=== PATIENT | female | born 1965 | race Two or more races ===

== ENCOUNTER 2018-11-26 08:50 | Outpatient (CLI) | payer OTHER | END 2018-11-26 23:59 | disposition home or self-care (01) | LOC: WOU 08:50 | PROVIDERS: ATTEND Podiatrist Foot & Ankle Surgery | DX: E11.621 Type 2 diabetes mellitus with foot ulcer (principal); L97.512 Non-pressure chronic ulcer of other part of right foot with fat layer exposed; E11.42 Type 2 diabetes mellitus with diabetic polyneuropathy; M21.41 Flat foot [pes planus] (acquired), right foot; Z89.421 Acquired absence of other right toe(s); M20.41 Other hammer toe(s) (acquired), right foot; Z79.4 Long term (current) use of insulin | CPT/HCPCS: 99205; A6402; G0463 ==

== ENCOUNTER 2018-12-03 08:00 | Outpatient (CLI) | payer OTHER | END 2018-12-03 23:59 | disposition home or self-care (01) | LOC: WOU 08:00 | PROVIDERS: ATTEND Podiatrist Foot & Ankle Surgery | DX: E11.621 Type 2 diabetes mellitus with foot ulcer (principal); L97.512 Non-pressure chronic ulcer of other part of right foot with fat layer exposed; Z79.4 Long term (current) use of insulin; M21.40 Flat foot [pes planus] (acquired), unspecified foot; E11.42 Type 2 diabetes mellitus with diabetic polyneuropathy; M20.41 Other hammer toe(s) (acquired), right foot; R60.0 Localized edema | CPT/HCPCS: G0463 ==

== ENCOUNTER 2018-12-10 08:30 | Outpatient (CLI) | payer OTHER | END 2018-12-10 23:59 | disposition home or self-care (01) | LOC: WOU 08:30 | PROVIDERS: ATTEND Podiatrist Foot & Ankle Surgery | DX: E11.621 Type 2 diabetes mellitus with foot ulcer (principal); L97.512 Non-pressure chronic ulcer of other part of right foot with fat layer exposed; E11.42 Type 2 diabetes mellitus with diabetic polyneuropathy; M21.40 Flat foot [pes planus] (acquired), unspecified foot; Z79.4 Long term (current) use of insulin | CPT/HCPCS: 11042 ==

== ENCOUNTER → 2018-12-17 | Outpatient (CLI) | payer OTHER | END | disposition home or self-care (01) | LOC: WOU 09:10 | PROVIDERS: ATTEND Podiatrist Foot & Ankle Surgery | DX: E11.621 Type 2 diabetes mellitus with foot ulcer (principal); L97.512 Non-pressure chronic ulcer of other part of right foot with fat layer exposed; E11.42 Type 2 diabetes mellitus with diabetic polyneuropathy; M21.41 Flat foot [pes planus] (acquired), right foot; R60.0 Localized edema; Z97.4 Presence of external hearing-aid | CPT/HCPCS: 11042 ==

== ENCOUNTER 2018-12-24 09:20 | Outpatient (CLI) | payer OTHER | END 2018-12-24 23:59 | disposition home or self-care (01) | LOC: WOU 09:20 | PROVIDERS: ATTEND Podiatrist Foot & Ankle Surgery | DX: E11.621 Type 2 diabetes mellitus with foot ulcer (principal); L97.512 Non-pressure chronic ulcer of other part of right foot with fat layer exposed; E11.42 Type 2 diabetes mellitus with diabetic polyneuropathy; M21.41 Flat foot [pes planus] (acquired), right foot; M76.821 Posterior tibial tendinitis, right leg; M19.171 Post-traumatic osteoarthritis, right ankle and foot; Z79.4 Long term (current) use of insulin | CPT/HCPCS: 11042 ==

== ENCOUNTER 2018-12-31 09:20 | Outpatient (CLI) | payer OTHER | END 2018-12-31 23:59 | disposition home or self-care (01) | LOC: WOU 09:20 | PROVIDERS: ATTEND Podiatrist Foot & Ankle Surgery | DX: E11.621 Type 2 diabetes mellitus with foot ulcer (principal); L97.512 Non-pressure chronic ulcer of other part of right foot with fat layer exposed; R60.0 Localized edema; E11.42 Type 2 diabetes mellitus with diabetic polyneuropathy; M21.41 Flat foot [pes planus] (acquired), right foot; Z79.4 Long term (current) use of insulin | CPT/HCPCS: 11042 ==

== ENCOUNTER 2019-01-11 09:05 | Outpatient (CLI) | payer OTHER | END 2019-01-11 23:59 | disposition home or self-care (01) | LOC: WOU 09:05 | PROVIDERS: ATTEND Podiatrist Foot & Ankle Surgery | DX: E11.621 Type 2 diabetes mellitus with foot ulcer (principal); L97.512 Non-pressure chronic ulcer of other part of right foot with fat layer exposed; E11.42 Type 2 diabetes mellitus with diabetic polyneuropathy; Z79.4 Long term (current) use of insulin; Z79.899 Other long term (current) drug therapy; M21.41 Flat foot [pes planus] (acquired), right foot; R60.0 Localized edema | CPT/HCPCS: 11042 ==

== ENCOUNTER 2019-01-18 09:09 | Outpatient (CLI) | payer OTHER | END 2019-01-18 23:59 | disposition home or self-care (01) | LOC: WOU 09:09 | PROVIDERS: ATTEND Podiatrist Foot & Ankle Surgery | DX: E11.621 Type 2 diabetes mellitus with foot ulcer (principal); L97.512 Non-pressure chronic ulcer of other part of right foot with fat layer exposed; E11.42 Type 2 diabetes mellitus with diabetic polyneuropathy; E11.610 Type 2 diabetes mellitus with diabetic neuropathic arthropathy; Z79.4 Long term (current) use of insulin; R60.0 Localized edema; M21.41 Flat foot [pes planus] (acquired), right foot; M76.821 Posterior tibial tendinitis, right leg; M19.171 Post-traumatic osteoarthritis, right ankle and foot; Z79.899 Other long term (current) drug therapy | CPT/HCPCS: 11042 ==

== ENCOUNTER 2019-01-25 09:00 | Outpatient (CLI) | payer OTHER | END 2019-01-25 23:59 | disposition home or self-care (01) | LOC: WOU 09:00 | PROVIDERS: ATTEND Podiatrist Foot & Ankle Surgery | DX: E11.621 Type 2 diabetes mellitus with foot ulcer (principal); L97.512 Non-pressure chronic ulcer of other part of right foot with fat layer exposed; E11.42 Type 2 diabetes mellitus with diabetic polyneuropathy; E11.610 Type 2 diabetes mellitus with diabetic neuropathic arthropathy; M21.41 Flat foot [pes planus] (acquired), right foot; M76.821 Posterior tibial tendinitis, right leg; M19.171 Post-traumatic osteoarthritis, right ankle and foot; R60.0 Localized edema; Z79.4 Long term (current) use of insulin; Z79.899 Other long term (current) drug therapy | CPT/HCPCS: 11042 ==

== ENCOUNTER 2019-02-02 13:10 | Outpatient (CLI) | payer OTHER | END 2019-02-02 23:59 | disposition home or self-care (01) | LOC: WOU 13:10 | PROVIDERS: ATTEND Podiatrist Foot & Ankle Surgery | DX: E11.621 Type 2 diabetes mellitus with foot ulcer (principal); L97.512 Non-pressure chronic ulcer of other part of right foot with fat layer exposed; E11.42 Type 2 diabetes mellitus with diabetic polyneuropathy; M21.41 Flat foot [pes planus] (acquired), right foot; M76.821 Posterior tibial tendinitis, right leg; M19.171 Post-traumatic osteoarthritis, right ankle and foot; E11.610 Type 2 diabetes mellitus with diabetic neuropathic arthropathy; R60.0 Localized edema; Z79.4 Long term (current) use of insulin | CPT/HCPCS: 17250 ==

== ENCOUNTER 2019-03-02 13:00 | Outpatient (CLI) | payer OTHER | END 2019-03-02 23:55 | disposition home or self-care (01) | LOC: WOU 13:00 | PROVIDERS: ATTEND Podiatrist Foot & Ankle Surgery | DX: E11.621 Type 2 diabetes mellitus with foot ulcer (principal); L97.512 Non-pressure chronic ulcer of other part of right foot with fat layer exposed; E11.42 Type 2 diabetes mellitus with diabetic polyneuropathy; M21.071 Valgus deformity, not elsewhere classified, right ankle; M20.31 Hallux varus (acquired), right foot; Z79.4 Long term (current) use of insulin | CPT/HCPCS: 11042 ==

== ENCOUNTER 2019-03-09 12:55 | Outpatient (CLI) | payer OTHER | END 2019-03-09 23:59 | disposition home or self-care (01) | LOC: WOU 12:55 | PROVIDERS: ATTEND Podiatrist Foot & Ankle Surgery | DX: E11.621 Type 2 diabetes mellitus with foot ulcer (principal); L97.512 Non-pressure chronic ulcer of other part of right foot with fat layer exposed; E11.610 Type 2 diabetes mellitus with diabetic neuropathic arthropathy; M19.171 Post-traumatic osteoarthritis, right ankle and foot; M76.821 Posterior tibial tendinitis, right leg; M21.41 Flat foot [pes planus] (acquired), right foot; E11.42 Type 2 diabetes mellitus with diabetic polyneuropathy; Z79.84 Long term (current) use of oral hypoglycemic drugs | CPT/HCPCS: 11042 ==

== ENCOUNTER 2019-03-16 13:00 | Outpatient (CLI) | payer OTHER | END 2019-03-16 23:59 | disposition home or self-care (01) | LOC: WOU 13:00 | PROVIDERS: ATTEND Podiatrist Foot & Ankle Surgery | DX: E11.621 Type 2 diabetes mellitus with foot ulcer (principal); L97.512 Non-pressure chronic ulcer of other part of right foot with fat layer exposed; Z89.421 Acquired absence of other right toe(s); E11.610 Type 2 diabetes mellitus with diabetic neuropathic arthropathy; M21.41 Flat foot [pes planus] (acquired), right foot; R60.0 Localized edema; E11.42 Type 2 diabetes mellitus with diabetic polyneuropathy; L84 Corns and callosities; M20.30 Hallux varus (acquired), unspecified foot; Z79.4 Long term (current) use of insulin | CPT/HCPCS: 11042 ==

== ENCOUNTER 2019-03-23 13:00 | Outpatient (CLI) | payer OTHER | END 2019-03-23 23:59 | disposition home or self-care (01) | LOC: WOU 13:00 | PROVIDERS: ATTEND Podiatrist Foot & Ankle Surgery | DX: E11.621 Type 2 diabetes mellitus with foot ulcer (principal); L97.512 Non-pressure chronic ulcer of other part of right foot with fat layer exposed; Z89.421 Acquired absence of other right toe(s); E11.610 Type 2 diabetes mellitus with diabetic neuropathic arthropathy; E11.42 Type 2 diabetes mellitus with diabetic polyneuropathy; Z79.4 Long term (current) use of insulin | CPT/HCPCS: G0463 ==

== ENCOUNTER 2019-04-20 14:15 | Outpatient (CLI) | payer OTHER | END 2019-04-20 23:59 | disposition home or self-care (01) | LOC: WOU 14:15 | PROVIDERS: ATTEND Podiatrist Foot & Ankle Surgery | DX: E11.621 Type 2 diabetes mellitus with foot ulcer (principal); L97.512 Non-pressure chronic ulcer of other part of right foot with fat layer exposed; Z89.421 Acquired absence of other right toe(s); E11.610 Type 2 diabetes mellitus with diabetic neuropathic arthropathy; E11.42 Type 2 diabetes mellitus with diabetic polyneuropathy; M20.41 Other hammer toe(s) (acquired), right foot; M21.41 Flat foot [pes planus] (acquired), right foot; M19.171 Post-traumatic osteoarthritis, right ankle and foot; M76.821 Posterior tibial tendinitis, right leg; Z79.4 Long term (current) use of insulin | CPT/HCPCS: 11042 ==

== ENCOUNTER 2019-04-27 13:20 | Outpatient (CLI) | payer OTHER | END 2019-04-27 23:59 | disposition home or self-care (01) | LOC: WOU 13:20 | PROVIDERS: ATTEND Podiatrist Foot & Ankle Surgery | DX: E11.621 Type 2 diabetes mellitus with foot ulcer (principal); L97.512 Non-pressure chronic ulcer of other part of right foot with fat layer exposed; E11.610 Type 2 diabetes mellitus with diabetic neuropathic arthropathy; E11.42 Type 2 diabetes mellitus with diabetic polyneuropathy; M21.41 Flat foot [pes planus] (acquired), right foot; M76.821 Posterior tibial tendinitis, right leg; M19.171 Post-traumatic osteoarthritis, right ankle and foot; R60.0 Localized edema; Z79.4 Long term (current) use of insulin | CPT/HCPCS: 11042 ==

== ENCOUNTER 2019-05-18 13:20 | Outpatient (CLI) | payer OTHER | END 2019-05-18 23:59 | disposition home or self-care (01) | LOC: WOU 13:20 | PROVIDERS: ATTEND Podiatrist Foot & Ankle Surgery | DX: E11.621 Type 2 diabetes mellitus with foot ulcer (principal); L97.512 Non-pressure chronic ulcer of other part of right foot with fat layer exposed; E11.42 Type 2 diabetes mellitus with diabetic polyneuropathy; M21.41 Flat foot [pes planus] (acquired), right foot; M19.171 Post-traumatic osteoarthritis, right ankle and foot; E11.610 Type 2 diabetes mellitus with diabetic neuropathic arthropathy; R60.0 Localized edema | CPT/HCPCS: 11042 ==

== ENCOUNTER 2019-05-25 13:09 | Outpatient (CLI) | payer OTHER | END 2019-05-25 23:59 | disposition home or self-care (01) | LOC: WOU 13:09 | PROVIDERS: ATTEND Podiatrist Foot & Ankle Surgery | DX: E11.621 Type 2 diabetes mellitus with foot ulcer (principal); L97.512 Non-pressure chronic ulcer of other part of right foot with fat layer exposed; B35.1 Tinea unguium; M20.41 Other hammer toe(s) (acquired), right foot; M21.41 Flat foot [pes planus] (acquired), right foot; M19.171 Post-traumatic osteoarthritis, right ankle and foot; M76.821 Posterior tibial tendinitis, right leg; Z89.421 Acquired absence of other right toe(s); S90.424A Blister (nonthermal), right lesser toe(s), initial encounter; X58.XXXA Exposure to other specified factors, initial encounter; Y92.89 Other specified places as the place of occurrence of the external cause; R60.0 Localized edema; E11.42 Type 2 diabetes mellitus with diabetic polyneuropathy; E11.610 Type 2 diabetes mellitus with diabetic neuropathic arthropathy; Z79.4 Long term (current) use of insulin | CPT/HCPCS: 11042 ==

== ENCOUNTER 2019-06-01 14:25 | Outpatient (CLI) | payer OTHER | END 2019-06-01 23:59 | disposition home or self-care (01) | LOC: WOU 14:25 | PROVIDERS: ATTEND Podiatrist Foot & Ankle Surgery | DX: E11.621 Type 2 diabetes mellitus with foot ulcer (principal); L97.512 Non-pressure chronic ulcer of other part of right foot with fat layer exposed; M21.41 Flat foot [pes planus] (acquired), right foot; M76.821 Posterior tibial tendinitis, right leg; M19.171 Post-traumatic osteoarthritis, right ankle and foot; R60.0 Localized edema; Z79.4 Long term (current) use of insulin | CPT/HCPCS: 11042 ==

== ENCOUNTER 2019-06-08 14:00 | Outpatient (CLI) | payer OTHER | END 2019-06-08 23:59 | disposition home or self-care (01) | LOC: WOU 14:00 | PROVIDERS: ATTEND Podiatrist Foot & Ankle Surgery | DX: E11.621 Type 2 diabetes mellitus with foot ulcer (principal); L97.512 Non-pressure chronic ulcer of other part of right foot with fat layer exposed; E11.42 Type 2 diabetes mellitus with diabetic polyneuropathy; E11.610 Type 2 diabetes mellitus with diabetic neuropathic arthropathy; M19.171 Post-traumatic osteoarthritis, right ankle and foot; M76.821 Posterior tibial tendinitis, right leg; M21.41 Flat foot [pes planus] (acquired), right foot; R60.0 Localized edema; M20.41 Other hammer toe(s) (acquired), right foot; Z79.4 Long term (current) use of insulin | CPT/HCPCS: 11042 ==